=== PATIENT | female | born 1960 | race Caucasian/White ===

== ENCOUNTER 2018-11-06 06:10 | Day surgery (SDC) | payer OTHER ==
[2018-11-04 15:15] VITALS: BMI 19.8
[2018-11-06] MEDS ORDERED: LIDOCAINE 1%-EPI 1:100,000 30 ML MDV IJ ONE ×2 (07:28→08:05)
[2018-11-06] MEDS ORDERED: BUPIVACAINE HCL/PF 0.5% (5MG/ML) 10 ML VIAL ONE (07:28)
[2018-11-06] MEDS ORDERED: EPINEPHrine/PF 1 MG/1 ML (1:1,000) AMPULE ONE (07:28)
[2018-11-06] MEDS ORDERED: ROCURONIUM BROMIDE 50 MG/5 ML VIAL ONE (07:30)
[2018-11-06] MEDS ORDERED: PROPOFOL 20 ML ONE ×3 (07:30→09:28)
[2018-11-06] MEDS ORDERED: ceFAZolin SODIUM 1 GM VIAL ONE ×2 (07:32→07:51)
[2018-11-06] MEDS ORDERED: SODIUM CHLORIDE 0.9% P/F 10 ML VIAL IJ ONE (07:32)
[2018-11-06] MEDS ORDERED: LIDOCAINE HCL/PF 2% SDV 5ML VIAL ONE (07:32)
[2018-11-06] MEDS ORDERED: KETAMINE HCL 200 MG/20 ML VIAL ONE (07:32)
[2018-11-06] MEDS ORDERED: DESFLURANE GAS 240 ML BOTTLE IH ONE (07:36)
[2018-11-06] MEDS ORDERED: DEXAMETHASONE SOD PHOSPHATE 4 MG/1 ML VIAL ONE (07:36)
[2018-11-06] MEDS ORDERED: MIDAZOLAM HCL 2 MG/2 ML SINGLE DOSE VIAL ONE (07:50)
[2018-11-06] MEDS ORDERED: GENTAMICIN SO4 80 MG/2 ML VIAL ONE (07:51)
[2018-11-06] MEDS ORDERED: BACITRACIN 15 GM TUBE TOPICAL OINTMENT ONE (07:52)
[2018-11-06] MEDS ORDERED: oxyCODONE HCL 5 MG TABLET PO PRN ×2 (08:10)
[2018-11-06] MEDS ORDERED: ONDANSETRON 4 MG/2 ML VIAL IVPUSH PRN (08:10)
[2018-11-06] MEDS ORDERED: LACTATED RINGERS SOLUTION 1,000 ML IV SCH (08:15)
[2018-11-06] MEDS ORDERED: ceFAZolin SODIUM 1 GM VIAL IVPB ONE (08:20)
[2018-11-06] MEDS ORDERED: ePHEDrine SULFATE 50 MG/1 ML AMPULE ONE (08:30)
[2018-11-06] MEDS ORDERED: LIDOCAINE 1%/EPI 1:100000 (50 ML MULTI DOSE VIAL) NR ONE (08:37)
[2018-11-06] MEDS ORDERED: KETOROLAC TROMETHAMINE 30 MG/1 ML VIAL ONE (08:43)
--- NOTE | 2018-11-06 10:00 | OP ---
Operative Note - Note: Operative Date: 11/06/18 Pre-Operative Diagnosis: Acquired chest wall deformity post mastectomy. Mass of left breast Operation: Bilateral breast reconstruction with other technique,subcutaneous tissue transfer. Bilateral Implant exchange with capsulectomy Findings: Mass of left inferior pole probably irregular capsule Implants: Bilateral silicine see dict Surgeon: Denver Floyd Anesthesia: General Specimens Removed: bilat implants ,bilateral capsule Estimated Blood Loss (mls): 10 Operative Report Dictated: Yes
[2018-11-06] MEDS ORDERED: ONDANSETRON 4 MG/2 ML VIAL ONE (10:35)
[2018-11-06] MEDS ORDERED: ACETAMINOPHEN 1000 MG/100 ML VIAL (NON FORMULARY) IVPB ONE (10:37)
[2018-11-06 10:50] VITALS: TEMP 97.7
[2018-11-06 12:19] VITALS: BP 116/71; PULSE 86
--- NOTE | 2018-11-07 11:36 | OP ---
DATE OF OPERATION: 11/06/2018 SURGEON: Servando Floyd MD PREOPERATIVE DIAGNOSES: 1. Bilateral acquired chest wall deformity status post bilateral mastectomy. 2. Personal history of breast carcinoma risk. 3. Mechanical complication of breast implant. 4. Bilateral capsular malposition. POSTOPERATIVE DIAGNOSES: 1. Bilateral acquired chest wall deformity status post bilateral mastectomy. 2. Personal history of breast carcinoma risk. 3. Mechanical complication of breast implant. 4. Bilateral capsular malposition. OPERATIVE PROCEDURE: 1. Right breast reconstruction using other technique. 2. Left breast reconstruction utilizing other technique. 3. Right breast capsulectomy, removal and replacement of right breast implant. 4. Left breast capsulectomy, removal and replacement of left breast implant. OPERATIVE INDICATION: The patient is a 58-year-old young female who underwent mastectomy in 2007, approximately 11 years ago and now presents with the above findings deformities of acquired chest wall deformity and breast implant malposition. The risks and benefits of surgical versus nonsurgical alternatives as well as the material complications of the above procedures were described in great detail to the patient preoperatively. She agreed to the planned procedure. She was marked in a standing position preoperatively in the holding area with outline of the incisions with full discussion with all questions asked and answered. PROCEDURE IN DETAIL: The patient was taken to the operating room, and after induction of general anesthesia in the supine position, both arms were extended and padded. Venodyne boots were placed, and prepping and draping was carried out over the entire extent of the abdomen and flank as well as the chest wall. After time out was achieved, attention was turned to the mastectomy scars. These were injected with 1% local lidocaine anesthesia with 1:100,000 epinephrine along the transverse incision in the lower portion of the breast. An area in the lower flank was also injected for reconstructive tissue and harvest. After allowing topical anesthesia and hemostasis for approximately 10 minutes, attention was turned to the right breast. An incision was made down through the skin through the subcutaneous tissue down to the underlying capsule of the right breast implant. The implant was then removed where I performed a capsulotomy and then a capsulectomy on the right breast in order to remove the old capsule and malposition of the implant. This was carried out over the entire extent of the lower portion of the breast. The capsule was sent for pathologic diagnosis. At this point, copious irrigation with triple antibiotic solution was carried out, and the exact same procedure was carried out symmetrically on the opposite left breast also making the incision down through the skin removing the capsule because of malposition. This left breast capsule was also sent for pathologic diagnosis. Once this was accomplished, attention was turned to the reconstructed tissue. Incisions were made in the right and left sides of the body, down through the skin, deep into the subcutaneous tissue along the lateral extent of the external oblique muscle and down into the deep tissues. The tissue was then harvested in the usual fashion for reconstructive procedure and transferred to the back table, washed, cleansed, and prepared for reconstructive purpose. At this point, the tissue was transferred to the right and left breast independently. Tissue was placed into the superior, medial, and central portions of the right breast and to the superior, medial, and central portions of the left breast. At this point, an implant was chosen. A Sientra Smooth Round High Profile style 106/415-mL implant was chosen for the breast. This was placed into the right breast pocket and then closed using 3-0 Monocryl on the deep tissue and fascia, 3-0 in a deep dermal fashion, and a subcuticular suture with 3-0 V-Lock suture was placed into the skin. At this point, the donor site was then closed using interrupted and running sutures in order to close the lower abdominal incision. Dry sterile dressings with Dermabond, Steri-Strips, and a compressive dressing were placed over all wounds. She tolerated the procedure well. She was awakened, extubated, and transferred to the recovery room in satisfactory condition. SERVANDO FLOYD M.D. [id number]
== END 2018-11-06 12:20 | disposition home or self-care (01) ==
LOC: JASU-SURG 06:10
PROVIDERS: ATTEND Plastic Surgery
PROC: 0HWT0JZ Revision of Synthetic Substitute in Right Breast, Open Approach (ICD-10-PCS; 2018-11-06)
PROC: 0HWU0JZ Revision of Synthetic Substitute in Left Breast, Open Approach (ICD-10-PCS; principal; 2018-11-06 08:00)
DX: T85.42XA Displacement of breast prosthesis and implant, initial encounter (principal); M95.4 Acquired deformity of chest and rib; Z90.13 Acquired absence of bilateral breasts and nipples
CPT/HCPCS: 88300-TC; 88304-TC; 94760; J0131